=== PATIENT | female | born 1975 | race African-American/Black ===

== ENCOUNTER 2017-04-20 15:43 | Emergency (ER) | payer SELFPAY ==
[~2017-04-20] VITALS: Ht 180.3 cm; Wt 84.4 kg
[2017-04-20 15:57] VITALS: BP 134/87
[2017-04-20 16:24] LABS: Basophils # (auto) 0.1 uL; Basophils % (auto) 0.9 % (0.0-2.0); CONDITION Y; Eosinophils # (auto) 0.6 uL; Eosinophils % (auto) 6.2 % (0.0-7.0); Hematocrit 40.8 % (36.0-46.0); Hemoglobin 13.6 g/dL (12.2-16.2); Lymphocytes # (auto) 3.1 uL; Lymphocytes % (auto) 33.6 % (10.0-50.0); Mean Corpuscular Hemoglobin 33.5 pg (28.0-32.0); Mean Corpuscular Hgb Conc. 33.3 g/dL (32.0-36.0); Mean Corpuscular Volume 100.7 fL (80.0-100.0); Mean Platelet Volume 9.2 fL (7.4-10.4); Monocytes # (auto) 0.6 uL; Monocytes % (auto) 6.3 % (0.0-12.0); Platelet Count (auto) 283 10^3/uL (140-450); Red Cell Distribution Width 14.8 % (11.6-16.0); White Blood Cell 9.4 10^3/uL (4.4-10.8)
[2017-04-20 16:43] LABS: Albumin 3.5 g/dL (3.4-5.0); BUN/Creatinine Ratio 4.9; Bilirubin, Total 0.5 mg/dL (0.2-1.0); Calcium 8.8 mg/dL (8.5-10.1); Total Protein 7.8 g/dL (6.4-8.2)
== END 2017-04-20 22:09 | disposition left against medical advice (07) ==
LOC: ER 15:48
DX: R10.9 Unspecified abdominal pain (principal); M54.9 Dorsalgia, unspecified; N93.9 Abnormal uterine and vaginal bleeding, unspecified; Z53.21 Procedure and treatment not carried out due to patient leaving prior to being seen by health care provider
CPT/HCPCS: 36415; 80053; 84702; 85025